=== PATIENT | male | born 1970 | race Caucasian/White ===

== ENCOUNTER 2016-05-02 20:50 | Emergency (ER) | payer MEDICAID ==
[~2016-05-02] VITALS: Ht 167.6 cm; Wt 90.7 kg
[2016-05-02 21:06] VITALS: BP 98/69
--- NOTE | 2016-05-02 21:34 | NUR ---
TO ER BED 5
--- NOTE | 2016-05-02 21:37 | NUR ---
PT C/O RT HAND LACERATION, WHILE CUTTING METAL ON HIS [place] AT [id number] BLEEDING NOTED
[2016-05-02] MEDS ORDERED: NEOMYCIN/POLYMYXIN/BACITRACIN 0.9 GM/1 PKT TP ONE (21:40)
[2016-05-02] MEDS ORDERED: LIDOCAINE 1% 500 MG/50 ML VIAL INJ ONE (21:40)
--- NOTE | 2016-05-02 22:00 | NUR ---
DR. HERRON DO THE SUTURE NOW.
--- NOTE | 2016-05-02 22:10 | NUR ---
Patient discharged with v/s stable BY DR. HERRON. Written and verbal after care instructions given and explained. Patient verbalized understanding. Ambulatory with steady gait. All questions addressed prior to discharge. Advised to follow up with PMD.
[2016-05-02 22:11] VITALS: BP 107/65
== END 2016-05-02 22:10 | disposition home or self-care (01) ==
LOC: MED 20:50
DX: S61.214A Laceration without foreign body of right ring finger without damage to nail, initial encounter (principal); W45.8XXA Other foreign body or object entering through skin, initial encounter; Y93.89 Activity, other specified; Y92.89 Other specified places as the place of occurrence of the external cause; Y99.8 Other external cause status
CPT/HCPCS: 12001; 90471; 90715; 99283; J2001